=== PATIENT | female | born 1960 | race Caucasian/White ===

== ENCOUNTER → 2017-10-07 | Outpatient (CLI) | payer OTHER | END | disposition home or self-care (01) | LOC: CFH 10:22 | PROVIDERS: ATTEND Genetic Counselor, MS | DX: Z12.31 Encounter for screening mammogram for malignant neoplasm of breast (principal) | CPT/HCPCS: 77063; 77067 ==

== ENCOUNTER 2018-11-27 08:38 | Emergency (ER) | payer OTHER ==
[~2018-11-27] VITALS: Ht 170.2 cm; Wt 65.9 kg
[~2018-11-27 08:38] MED LIST: BUDE9TAB2 PO; ESTR1TAB15 PO; FLUO40CA9 PO; MEDR2.5T30 PO; NORT10CA PO; ONDA4TAB7 SL; PANT40TA5 PO; SUMA100T3 PO
--- NOTE | 2018-11-27 08:40 | NUR ---
PT BIB [facility] FROM HOME IN [facility] FOR C/O CROHN'S FLARE UP. STATES ABD PAIN HAS BEEN WORSENING OVER PAST COUPLE DAYS, AND BECAME SEVERE WITH SHARP PAIN TO LOWER ABD AND JOINTS YESTERDAY. PT ALSO C/O ASSOCIATED DIARRHEA. DENIES N/V. PT WAS MEDICATED WITH TOTAL 200MCG FENTANYL, 12.5MG PHENERGAN, AND 500ML NS EN ROUTE. VS PER EMS: 134/85, HR 88, 98% ON RA, BS 85. PT ARRIVES TO ED A&OX4. STATES ABD PAIN 2/10 UPON ARRIVAL.
[2018-11-27 09:11] LABS: BASOPHILS # (AUTO) 0.01 x10^3/uL (0-0.1); BASOPHILS % (AUTO) 0 % (0-1); EOSINOPHILS % (AUTO) 0 % (1-7); LYMPHOCYTES # (AUTO) 0.46 x10^3/uL (1-3.4); LYMPHOCYTES % (AUTO) 5 % (22-44); MD NO; MEAN CORPUSCULAR HEMOGLOBIN 30.7 pg (27.0-34.8); MEAN CORPUSCULAR HGB CONC 33.9 g/dL (32.4-35.8); MEAN CORPUSCULAR VOLUME 90.4 fL (80-100); MEAN PLATELET VOLUME 7.3 fL (7.4-10.4); MONOCYTES # (AUTO) 0.29 x10^3/uL (0.2-0.8); MONOCYTES % (AUTO) 3 % (2-9); NEUTROPHILS # (AUTO) 8.35 x10^3/uL (1.8-6.8); NEUTROPHILS % (AUTO) 92 % (42-75); PLATELET COUNT 264 x10^3/uL (130-400); RED BLOOD COUNT 4.76 x10^6/uL (3.82-5.3); RED CELL DISTRIBUTION WIDTH 14.1 % (9.6-15.2)
[2018-11-27 09:20] LABS: ALANINE AMINOTRANSFERASE 23 U/L (12-78); ALBUMIN 3.7 g/dL (3.4-5.0); ANION GAP 7 mmol/L (5-15); CALCIUM 8.7 mg/dL (8.5-10.1); CHLORIDE 107 mmol/L (98-107); CREATININE 0.82 mg/dL (0.55-1.02)
[2018-11-27 09:23] LABS: ALKALINE PHOSPHATASE 54 U/L (45-117); BILIRUBIN,TOTAL 0.6 mg/dL (0.2-1.0); TOTAL PROTEIN 7.6 g/dL (6.4-8.2)
--- NOTE | 2018-11-27 09:38 | NUR ---
PT MEDICATED PER ORDERS. AMBULATED TO BR WITHOUT DIFFICULTY.
[2018-11-27 09:58] LABS: MICROSCOPIC NOT IND
[2018-11-27 10:01] LABS: CULTURE INDICATED? NO
[2018-11-27] MEDS ORDERED: ONDANSETRON 2MG/ML, 2ML ONE (10:28)
[2018-11-27] MEDS ORDERED: MORPHINE SULFATE 4 MG/ML, 1ML ONE (10:28)
[2018-11-27] MEDS ORDERED: MORPHINE SULFATE 4 MG/ML, 1ML IVPush PRN (10:30)
[2018-11-27] MEDS ORDERED: ONDANSETRON 2MG/ML, 2ML IVPush ONE (10:30)
--- NOTE | 2018-11-27 10:38 | NUR ---
PT WAS TAKEN TO CT VIA GURNEY. PER DEMOLITION HAMMER OPERATOR, PT'S PIV INFILTRATED FOLLOWING CONTRAST INJECTION. CT STILL ABLE TO BE READ BY RADIOLOGIST.
[2018-11-27] MEDS ORDERED: OMNIPAQUE 350 MG/ML, 75ML BOTTLE ONE (10:42)
[2018-11-27] MEDS ORDERED: SODIUM CHLORIDE FLUSH 10ML SYR IVF ONE (11:00)
--- NOTE | 2018-11-27 11:17 | NUR ---
PT MEDICATED FOR PAIN PER ORDERS. ALSO C/O HEADACHE. RV'WD POC WITH PT, SHE VERBALIZES UNDERSTANDING.
[2018-11-27 11:30] VITALS: BP 132/72
--- NOTE | 2018-11-27 12:34 | NUR ---
D/C INSTRUCTIONS & F/U APPT RV'WD WITH PT, SHE VERBALIZES UNDERSTANDING. AMBULATED OUT OF ED WITHOUT DIFFICULTY, FRIEND TO GIVE HER A RIDE HOME.
== END 2018-11-27 12:37 | disposition home or self-care (01) ==
LOC: ED 09:34
DX: K50.90 Crohn's disease, unspecified, without complications (principal); R10.84 Generalized abdominal pain; R10.32 Left lower quadrant pain; R10.31 Right lower quadrant pain
CPT/HCPCS: 36415; 74177; 80053; 81003; 83690; 85025; 96374; 96375; 99284; J2405; J7512; Q9967

== ENCOUNTER 2019-07-28 07:19 | Outpatient (CLI) | payer OTHER ==
[~2019-07-28] VITALS: Ht 165.1 cm; Wt 68.3 kg
[~2019-07-28 07:19] MED LIST changes: +HYDR-3241 PO; +PRED50TA PO; +TRAM100T33 PO
[2019-07-28 14:00] VITALS: BP 134/83
[2019-07-28] MEDS ORDERED: PRED10TA PO (14:41)
[2019-07-28] MEDS ORDERED: FILTER 0.22 MICRON IV ONE (15:00)
[2019-07-28] MEDS ORDERED: [UNRECOGNIZED DRUG - OTHER] IV ONE (15:00)
[2019-07-28] MEDS ORDERED: USTEKINUMAB ONE (15:00)
== END 2019-07-28 23:59 | disposition home or self-care (01) ==
LOC: INFUSION 07:19
PROVIDERS: ATTEND Internal Medicine
DX: K50.90 Crohn's disease, unspecified, without complications (principal); F41.9 Anxiety disorder, unspecified
CPT/HCPCS: 96365; J3358